=== PATIENT | female | born 1995 | race Caucasian/White ===

== ENCOUNTER → 2018-01-14 14:02 | Outpatient (CLI) | payer OTHER, MEDICAID ==
[2015-03-05 05:49] VITALS: BMI 32.6
[~2018-01-14 14:02] MED LIST: CASTOR OIL; IBUPROFEN600 MG PO; PERCOCET 5-3251 TAB PO; PRILOSEC20 MG PO
[2018-01-14 14:42] LABS: APPEARANCE CLEAR (CLEAR); BILIRUBIN NEGATIVE (NEGATIVE); COLOR YELLOW (YELLOW); GLUCOSE NEGATIVE (NEGATIVE); KETONE NEGATIVE (NEGATIVE); NITRITE NEGATIVE (NEGATIVE); PROTEIN NEGATIVE (NEGATIVE); SPECIFIC GRAVITY 1.015 (1.005-1.020); UROBILINOGEN NORMAL (NORMAL)
== END | disposition home or self-care (01) ==
LOC: D.LDO 14:02
PROVIDERS: Obstetrics & Gynecology
DX: O26.892 Other specified pregnancy related conditions, second trimester (principal); Z3A.23 23 weeks gestation of pregnancy

== ENCOUNTER → 2018-01-28 20:12 | Outpatient (CLI) | payer OTHER, MEDICAID ==
[2015-03-05 05:49] VITALS: BMI 32.6
[2018-01-28 20:58] LABS: APPEARANCE CLEAR (CLEAR); BILIRUBIN NEGATIVE (NEGATIVE); COLOR DK YELLOW (YELLOW); GLUCOSE NEGATIVE (NEGATIVE); KETONE LARGE mg/dL (NEGATIVE); NITRITE NEGATIVE (NEGATIVE); PROTEIN NEGATIVE (NEGATIVE); UROBILINOGEN NORMAL (NORMAL)
== END | disposition home or self-care (01) ==
LOC: D.LDO 20:12
PROVIDERS: Obstetrics & Gynecology
DX: O26.892 Other specified pregnancy related conditions, second trimester (principal); Z3A.25 25 weeks gestation of pregnancy; W18.30XA Fall on same level, unspecified, initial encounter; Y93.89 Activity, other specified; Y92.512 Supermarket, store or market as the place of occurrence of the external cause

== ENCOUNTER → 2018-03-20 21:15 | Outpatient (CLI) | payer OTHER, MEDICAID ==
[2015-03-05 05:49] VITALS: BMI 32.6
[2018-03-20 21:57] LABS: APPEARANCE CLEAR (CLEAR); COLOR YELLOW (YELLOW); SPECIFIC GRAVITY 1.005 (1.005-1.020)
[2018-03-20 21:58] LABS: BILIRUBIN NEGATIVE (NEGATIVE); GLUCOSE 250 mg/dL (NEGATIVE); KETONE NEGATIVE (NEGATIVE); NITRITE NEGATIVE (NEGATIVE); PROTEIN NEGATIVE (NEGATIVE); UROBILINOGEN NORMAL (NORMAL)
[2018-03-20 21:59] LABS: BACTERIA FEW /hpf (NONE SEEN); EPITHELIAL CELLS 0-5 /hpf (0-5); RED CELLS - URINE 0-5 /hpf (0-5); WHITE CELLS - URINE 0-5 /hpf (0-5)
== END | disposition home or self-care (01) ==
LOC: D.LDO 21:15
PROVIDERS: Obstetrics & Gynecology
DX: O26.893 Other specified pregnancy related conditions, third trimester (principal); Z3A.32 32 weeks gestation of pregnancy

== ENCOUNTER 2018-04-29 19:20 | Inpatient (IN) | payer MEDICAID ==
[~2018-04-29] VITALS: Ht 170.2 cm; Wt 87.1 kg
--- NOTE | ~2018-04-29 | DS ---
PATIENT:ANDREA GUADARRAMA :89 MEDICAL RECORD: [id number] DISCHARGE SUMMARY ADMISSION DATE: 04/30/18 DISCHARGE DATE: 05/02/18 HOSPITAL COURSE: The patient was admitted on 04/30/2018. A 22-year-old G2, P1 at 38 weeks and 7 days, who was admitted in labor. The patient was noted to be O negative, group B strep negative, and rubella immune. PAST MEDICAL HISTORY: Significant for remote history of epilepsy, history of acid reflux, history of depression. PAST SURGICAL HISTORY: The patient had a surgical history significant for cholecystectomy and hernia repair. ALLERGIES: The patient reported no allergies. FAMILY HISTORY: The patient reported a family history of hypertension in a sibling. SOCIAL HISTORY: The patient reported being a daily tobacco user. PHYSICAL EXAMINATION: VITAL SIGNS: Stable. The patient was afebrile and normotensive. LUNGS: Clear to auscultation. CARDIOVASCULAR: Regular rate and rhythm. PELVIC: Uterus was appropriately sized and appropriately tender. EXTREMITIES: Lower extremities were free of Homans sign, erythema or swelling. LABORATORY DATA: Admission hemoglobin was found to be 12.8 with a platelet count of 248. ASSESSMENT AND PLAN: At that time; 1. Term intrauterine at 38 weeks and 4 days. 2. Labor. 3. Remote history of epilepsy. 4. Depression. 5. Smoker. Plan for management of labor augmentation as necessary. Plan for artificial rupture of membranes when appropriate. wellbeing is reassuring with a category 1 tracing. The patient quickly progressed to 9 cm at which point artificial rupture of membranes was performed with clear fluid and category 1 tracing remain. The patient had a normal spontaneous vaginal delivery with repair of a second degree laceration. The delivery note is as on the chart. The patient did well overnight on day #0, tolerating p.o. pain meds, general diet, voiding freely and ambulating well, tolerating general diet. On morning of day #1, the patient continued to do well. Vital signs are stable. The patient was afebrile. hemoglobin was appropriate for blood loss. Uterus was infraumbilical and appropriately tender. The patient reported some pain at the area of the left labial repair. The patient was continued on [place] for pain and was discharged home on day #1 with instructions to follow up in 2 weeks for assessment of the labial tear. TRANSINT:[id number] Voice Confirmation ID: [id number] DOCUMENT ID: [id number] DISCHARGE SUMMARY REPORT [id number] ANDREA GUADARRAMA MICHAEL W MD CC: [id number] DICTATION DATE: 05/24/18746 MACHINE OPERATOR HOP PICKER: 05/24/1857 DIS IN 05/02/18 [place] [id number] [place] [id number]
[2018-04-30 02:35] VITALS: BP 105/63; Ht 170.2 cm; Wt 87.1 kg
[2018-04-30 05:08] LABS: HEMATOCRIT 36.8 % (36.0-48.0); HEMOGLOBIN 12.8 g/dL (12-16); MCH 28.7 pg (26.0-34.0); MCHC 34.8 g/dL (31.0-37.0); MCV 82.5 fL (80.0-100.0); MEAN PLATELET VOLUME 10.6 fL (7.4-10.4); RBC 4.46 10x6/uL (4.00-5.40); RDW 14.5 % (11.5-14.5); WBC 16.5 10x3/uL (4.8-10.8)
[2018-04-30 07:28] LABS: UDS - AMPHET NEGATIVE QUAL (NEGATIVE); UDS - BARB NEGATIVE QUAL (NEGATIVE); UDS - BENZO NEGATIVE QUAL (NEGATIVE); UDS - COCAINE NEGATIVE QUAL (NEGATIVE); UDS - OPIATE POSITIVE QUAL (NEGATIVE); UDS - PCP NEGATIVE QUAL (NEGATIVE); UDS - THC NEGATIVE QUAL (NEGATIVE)
--- NOTE | 2018-04-30 14:47 | NUR ---
REQUESTED MOTRIN FOR 4/10 ABD CRAMPING. MOTRIN 600 MG GIVEN PO AT THIS TIME. ALSO INSTRUCTED ON USE OF DERMOPLAST SPRAY IF NEEDED FOR PERINEAL DISCOMFORT. VERBALIZED UNDERSTANDING. SITTING UP IN BED EATING HAMBURGER AND TALKING TO VISITORS X2. INFANT SLEEPING IN CRIB.
--- NOTE | 2018-04-30 15:15 | NUR ---
CALLED CLINICAL SUPPORT ASSOCIATE LIGHT. REQUESTED INFANT TO GO TO THE NURSERY "SO I CAN SLEEP. I HAVEN'T SLEPT IN TWO DAYS." TAKEN TO NURSERY IN CRIB. SIDE RAILS UP X 2, CALL LIGHT IN REACH.
--- NOTE | 2018-04-30 16:15 | NUR ---
SLEEPING ON RIGHT SIDE. RESPIRATIONS EVEN. DID NOT AROUSE FOR PAIN ASSESSMENT AT THIS TIME. IN NURSERY.
--- NOTE | 2018-04-30 17:34 | NUR ---
SLEEPING ON LEFT SIDE. RESPIRATIONS EVEN. ALLOWED TO SLEEP AT THIS TIME. INFANT IN NURSERY. LIGHTS ON LOW, SIDE RAILS UP X 2, CALL LIGHT IN REACH. REGULAR DIET AT BEDSIDE.
--- NOTE | 2018-04-30 18:13 | NUR ---
CONTINUES TO SLEEP ON LEFT SIDE, RESPIRATIONS EVEN. REMAINS IN NURSERY CARE.
[2018-04-30 19:26] VITALS: BP 107/69
--- NOTE | 2018-04-30 19:26 | NUR ---
INTO PT. ROOM FOR ASSESSMENT. PT. LYING ON BACK WITH HOB AT 45 DEGREES. REPORTS THAT SHE IS WITHOUT PAIN AT THIS TIME. REPORTS THAT DERMOPLAST IS EFFECTIVE WHEN USED. SALINE LOCK NOTED IN LT HAND WITHOUT REDNESS NOR EDEMA AT SITE. FUNDUS FIRM U/2 AND MOD LOCHIA RUBRA NOTED ON SINGLE ROSALES PAD PT. WAS WEARING. ENCOURAGED PT. TO WEAR 2 PADS AT HS TO PREVENT SPILL OVER. PT. STATED UNDERSTANDING. BREATH SOUNDS CLEAR AND BOWEL SOUNDS AUDIBLE. PT. STATES THAT SHE HAS NOT BEEN OUT OF BED MUCH TODAY. ENCOURAGED AMBULATION PRIOR TO GOING TO SLEEP FOR THE NIGHT. PT. AGREEABLE. MEAL TRAY AT BEDSIDE WHICH WAS 70% CONSUMED AND FOOD BROUGHT FROM OUTSIDE ON BEDSIDE TABLE. INFANT TO ROOM FOR VISIT.
--- NOTE | 2018-04-30 20:30 | NUR ---
LYING ON BACK WITH HOB AT 30 DEGREES. IN NBN. PT. TALKING ON PHONE AND CHEERFUL. LEMON [place] SODA SERVED TO PT. DENIES ANY FURTHER NEEDS.
--- NOTE | 2018-04-30 21:45 | NUR ---
PT. SITTING UP IN BED WITH HOB AT 45 DEGREES. PT. CHEERFUL. IN OPEN CRIB AT BEDSIDE SUCKING ON PACIFIER. PT. COMMENTING THAT INFANT IS CONTENT. DENIES ANY NEEDS AT THIS TIME.
--- NOTE | 2018-04-30 22:22 | NUR ---
WALKING ABOUT IN ROOM. DENIES ANY NEEDS. REMAINS IN OPEN CRIB AT BEDSIDE ASLEEP. PT. ATTENTIVE TO .
--- NOTE | 2018-04-30 23:05 | NUR ---
PT. REQUESTING IBUPROFEN FOR PAIN SCORE OF 4 OF 10 FOR ABD. CRAMPING. LYING IN BED WITH HOB AT 45 DEGREES. INFANT REMAINS IN OPEN CRIB AT BEDSIDE. ASKED PT. IF SHE WAS . PT. STATES THAT SHE HASN'T TRIED YET. DISCUSSED WITH PT. THAT WITH NEXT FEEDING NBN NURSE CAN COME TO ROOM TO HELP HER AND PT. CONSENTS TO PLAN. ICE WATER PROVIDED.
--- NOTE | 2018-04-30 23:55 | NUR ---
pt. lying on rt side. States pain is a 3-4 of 10 on pain scale. Slightly drowsy. Denies any needs.
--- NOTE | 2018-05-01 01:23 | NUR ---
PT. CALLED DESK ASKING IF SHE COULD LEAVE UNIT TO GO TO VENDING AREA. THIS NURSE TO ROOM AND EXPLAINED THAT MD DID NOT LIKE PATIENT LEAVING THE UNIT. INFORMED PT. OF NOURISHMENTS AVAILABLE TO HER AND PT. REQUESTED SANDWICH TRAY AND CHIP WITH SODA. SANDWICH TRAY,CHIPS AND [place]ON [place] SODA SERVED TO PT. PT. LYING ON BACK WITH HOB AT 45 DEGREES. PT. CHEERFUL. INFANT CURRENTLY IN N.
--- NOTE | 2018-05-01 03:46 | NUR ---
LYING ON BACK WITH HOB AT 15 DEGREES. EYES CLOSED. RESPIRATIONS UNLABORED.
--- NOTE | 2018-05-01 05:55 | NUR ---
LYING ON LT SIDE WITH EYES CLOSED. RESPIRATIONS UNLABORED.
--- NOTE | 2018-05-01 06:57 | NUR ---
ASSUME CARE OF THIS PATIENT. SITTING UP BOTTLEFEEDING . WILL COMPLETE SHIFT ASSESSMENT AFTER BREAKFAST. NO REQUESTS AT PRESENT. SAYS SHE SMOKES ABOUT 3 SIGS A DAY, HAD FLU VACCINATION DURING , UNSURE ABOUT TDAP. RH NEGATIVE, RH NEGATIVE. RUBELLA IMMUNE, GBS NEG. ANTICIPATE DC HOME TODAY. SIDE RAILS UP X 2, CALL LIGHT IN REACH.
[2018-05-01 07:45] VITALS: BP 101/57
--- NOTE | 2018-05-01 08:00 | NUR ---
HAS BEEN USING DERMAPLAST SPRAY PRN STATES "IT OLIVAREZ". TUCKS PADS GIVEN AND INSTRUCTED ON USE TO HELP FOR PAIN, SWELLING, SOOTHING EFFECTS. VERBALIZED UNDERSTANDING. WILL USE NEXT TIME UP TO BATHROOM.
--- NOTE | 2018-05-01 08:08 | NUR ---
SHIFT ASSESSMENT COMPLETED. C/O 09/26 PERINEAL ACHING. STATES "I THINK IT'S SWOLLEN AND I'M HAVING TROUBLE SITTING". NORCO 5 MG GIVEN PO FOR RELIEF. DR HARP VISITED AND ALSO LOOKED A PERINEUM. HE INSTRUCTED PATIENT TO KEEP ICE PACK ON PERINEUM FOR NEXT 24 HOURS. HE INSTRUCTED PT THAT SHE MAY GO HOME TODAY OR TOMORROW IF DESIRES. CBC ORDERED BY . IN ROOM, Estela HICKS RN AT BEDSIDE.
--- NOTE | 2018-05-01 08:38 | NUR ---
SITTING UP EATING BREAKFAST, USED TUCKS AND HAS ICE PACK IN PLACE. STATES "I FEEL MUCH BETTER". / PERINEAL ACHING. INFANT IN CRIB. SIDE RAILS UP X 2, CALL LIGHT IN REACH. NO REQUESTS.
[2018-05-01 08:56] LABS: BASOPHILS 0.2 % (0-2); EOSINOPHILS 0.4 % (0-7); HEMATOCRIT 30.9 % (36.0-48.0); HEMOGLOBIN 10.3 g/dL (12-16); IMMATURE GRANULOCYTES 0.5 % (0-5); LYMPHOCYTES 18.8 % (15-50); MCH 28.1 pg (26.0-34.0); MCHC 33.3 g/dL (31.0-37.0); MCV 84.4 fL (80.0-100.0); MEAN PLATELET VOLUME 9.7 fL (7.4-10.4); MONOCYTES 6.7 % (2-11); NEUTROPHILS 73.4 % (40-80); PLATELET COUNT 206 10x3/uL (130-400); RBC 3.66 10x6/uL (4.00-5.40); RDW 14.6 % (11.5-14.5); WBC 13.2 10x3/uL (4.8-10.8)
--- NOTE | 2018-05-01 10:11 | NUR ---
SITTING UP IN BED TALKING ON PHONE. DESIRES LEMON [place] DRINK, GIVEN ALONG WITH FRESH WATER. IN NURSERY. DESIRES TO TAKE A NAP.
--- NOTE | 2018-05-01 11:14 | NUR ---
PT DESIRES TO STAY UNTIL TOMORROW STATES "ONE MORE NIGHT SO I DON'T HAVE KIDS JUMPING ON ME". DR HARP NOTIFIED THAT PT WANTS TO STAY ANOTHER DAY, HE SAID THAT WAS FINE BUT NEED TO MAKE SURE HER INSURANCE WILL COVER ANOTHER DAY'S STAY. MD ALSO NOTIFIED OF WBC/HBG/HCT RESULTS. PT NOTIFIED OF INFORMATION ABOVE. STATES "OK".
--- NOTE | 2018-05-01 11:25 | NUR ---
MARKER SHIPMENTS CURRENTLY IN ROOM TALKING TO PATIENT.
--- NOTE | 2018-05-01 12:31 | NUR ---
SITTING UP IN BED WAITING ON LUNCH. ASKED IF SALINE LOCK CAN BE DC'D "IT'S REALLY BOTHERING ME". SALINE LOCK DC'D. TIP INTACT. HOUSEKEEPING NOTIFIED OF NEED FOR ROOM CLEANING. INSTRUCTED PT TO LET RN KNOW WHEN READY TO SHOWER SO LINEN CHANGE CAN BE COMPLETED. INFANT IN NURSERY. SIDE RAILS UP X 2, CALL LIGHT IN REACH.
--- NOTE | 2018-05-01 12:41 | NUR ---
INFANT IN ROOM. EATING LUNCH. SAYS HER PERINEAL PAIN IS "LIKE A 2". USING ICE PACK PRN. NO REQUESTS. TO CALL IF ANYTHING IS NEEDED.
--- NOTE | 2018-05-01 13:42 | NUR ---
WATCHING TV. INFANT IN CRIB. NO REQUESTS.
[2018-05-01 15:07] VITALS: BP 94/58
--- NOTE | 2018-05-01 15:18 | NUR ---
SITTING UP IN BED BOTTLE FEEDING . DISCUSSED ENGOURGMENT POTENTIAL AND PREVENTION IF SHE COMPLETELY DECIDES NOT TO BREASTFEED. NO REQUESTS. ENCOURAGED TO GET OOB AND AMBULATE IN [place]. ALSO ENCOURAGED TO SHOWER TODAY. STATES "I'D LIKE TO WALK". INSTRUCTED OK TO WALK IN [place] PUSHING IN CRIB.
--- NOTE | 2018-05-01 17:46 | NUR ---
SITTING UP IN BED. FINISHED EATING BREAKFAST. SAYS SHE PLANS TO SHOWER AFTER BOTTLE FEEDING . HAS AMBULATED IN [place] AND ROOM. SOME CRAMPING/PERINEAL ACHING 4-5/ OFFERED PAIN MEDICATION NORCO OR MOTRIN. DECLINED AT THIS TIME. RECOMMENDED NOT WAITING IF PAIN INCREASES OR SHE FEELS SHE NEEDS IT. VERBALIZED UNDERSTANDING. CALL LIGHT IN REACH.
--- NOTE | 2018-05-01 18:49 | NUR ---
UP TO SHOWER. COMPLETE LINEN CHANGE DONE. INFANT IN NURSERY.
[2018-05-01 19:21] VITALS: BP 100/60
--- NOTE | 2018-05-01 19:21 | NUR ---
RN TO PT BS FOR JAMEY. PT RESTING IN BED IN SEMI-FOWLERS POSITION, IN NO ACUTE DISTRESS. PT IS A 22 YO G2 NOW P2 WITH OF VIABLE FEMALE YESTERDAY @ 0929. INFANT @ 38.4 WKS GESTATION. PT WITH 2ND DEGREE LACERATION S/P REPAIR. AAOX3. HR REGULAR. LUNGS CTAB. ABDOMEN SOFT AND NON TENDER. BS ACTIVE TIMES 4. FUNDUS NOT PALPATED. ROSALES PAD AND PANTIES IN PLACE. LOCHIA RUBRA SCANT. PERINIUM APPEARS TO BE INTACT WITH MINIMAL SWELLING NOTED. PT DENIES DIFFICULTY VOIDING. STATES SHE IS PASSING GAS BUT HAS NOT HAD A BM SINCE . PT TOLERATING REGULAR DIET WITHOUT DIFFICULTY. NO EDEMA NOTED TO UPPER OR LOWER EXTREMITIES BILATERALLY. NO IV ACCESS. PT C/O PAIN, RATES 6/10, REQUESTS MEDICATION. 1 TAB NORCO 5 PROVIDED AT THIS TIME. PT DENIES ANY FURTHER NEEDS. BED IN LOW POSITION, SIDE RAILS UP TIMES 2, CALL LIGHT AND PHONE IN REACH. NO FAMILY AT BS. INFANT AT PT BS FOR COUPLET CARE. WILL CONT TO MONITOR PT STATUS.
--- NOTE | 2018-05-01 20:06 | NUR ---
RN TO PT BS TO REASSESS PT PAIN. PT RESTING IN BED IN SEMI-FOWLERS POSITION, TEXTING ON PHONE, PT IN NO ACUTE DISTRESS. PT STATES PAIN LEVEL IS NOW 3/10. PT DENIES ANY FURTHER NEEDS AT THIS TIME. BED IN LOW POSITION, SIDE RAILS UP TIMES 2, CALL LIGHT AND PHONE IN REACH. INFANT REMAINS AT PT BS FOR COUPLET CARE. WILL CONT TO MONITOR PT STATUS.
--- NOTE | 2018-05-01 21:28 | NUR ---
RN CALLED TO PT BS. REQUESTS SNACK. SANDWICH TRAY, CHIPS, AND SPRITE PROVIDED TO PT AT THIS TIME. PT DENIES ANY FURTHER NEEDS. BED IN LOW POSITION, SIDE RAILS UP TIMES 2, CALL LIGHT AND PHONE IN REACH. INFANT REMAINS AT PT BS FOR COUPLET CARE. WILL CONT TO MONITOR PT STATUS.
--- NOTE | 2018-05-02 00:37 | NUR ---
RN TO PT BS FOR ROUNDS. PT RESTING IN BED IN HIGH FOWLERS POSITION, HOLDING . PT IN NO ACUTE DISTRESS. PT DENIES ANY NEEDS AT THIS TIME. BED IN LOW POSITION, SIDE RAILS UP TIMES 2, CALL LIGHT AND PHONE IN REACH. NO FAMILY AT BS. REMAINS AT PT BS FOR COUPLET CARE. WILL CONT TO MONITOR PT STATUS.
--- NOTE | 2018-05-02 01:21 | NUR ---
RN CALLED TO PT BS. PT C/O PAIN, RATES 09/26. REQUESTS MEDICATION. 1 TAB NORCO 5 PROVIDED AT THIS TIME. PT DENIES ANY FURTHER NEEDS. BED IN LOW POSITION, SIDE RAILS UP TIMES 2, CALL LIGHT AND PHONE IN REACH. REMAINS AT PT BS FOR COUPLET CARE. WILL CONT TO MONITOR PT STATUS.
--- NOTE | 2018-05-02 03:20 | NUR ---
RN TO PT BS. ADDITIONAL SPRITE PROVIDED TO PT PER REQUEST. PT DENIES ANY FURTHER NEEDS. BED IN LOW POSITION. SIDE RAILS UP TIMES 2, CALL LIGHT AND PHONE IN REACH. INFANT REMAINS AT PT BS FOR COUPLET CARE. WILL CONT TO MONITOR PT STATUS.
--- NOTE | 2018-05-02 04:20 | NUR ---
ADDITIONAL DISPOSABLE PANTIES PROVIDED TO PT. PT DENIES ANY FURTHER NEEDS. WILL CONT TO MONITOR PT STATUS.
--- NOTE | 2018-05-02 04:47 | NUR ---
ADDITIONAL ROSALES PADS PROVIDED TO PT. PT DENIES ANY FURTHER NEEDS. WILL CONT TO MONITOR PT STATUS.
[2018-05-02 07:30] VITALS: BP 117/77
--- NOTE | 2018-05-02 07:30 | NUR ---
AM ASSESSMENT COMPLETED CHARTED ON EMAR. PT RATES PAIN AT 0/10 AT THIS TIME AND COMPLAINS OF "BEING TIRED" DENIES CLOTS WITH VOIDS AND STATES BLEEDING IS LESS THAN HER MENSTRAL. REGULAR DIET TRAY SERVED PER DIETARY, IN CRIB AT BEDSIDE. PT DENIES ANY NEEDS AT THIS TIME.
--- NOTE | 2018-05-02 08:15 | NUR ---
LARGE CUP OF ICE PER REQUEST.
--- NOTE | 2018-05-02 09:45 | NUR ---
CONTINUE TO DENY PAIN, BREASTMILK THAT SHE PUMPED TAKEN TO ROOM FOR INFANT FEEDING.
--- NOTE | 2018-05-02 11:00 | NUR ---
PT CALLS FOR NURSE SHE HAS 2 CONTAINERS OF BREAST MILK THAT SHE HAS PUMPED, LABELED TO INCLUDE TIME/DATE. THESE ARE TAKEN TO [place] IN NURSERY. NO OTHER NEEDS AT THIS TIME.
--- NOTE | 2018-05-02 11:18 | NUR ---
CALLED TO ROOM, PT STATES THAT HER SISTER WILL BE PICKING HER UP AROUND 1PM OR 1:30PM. DENIES NEEDS AND CONTINUE TO RATE PAIN AT 0/10. UP WALKING IN ROOM WITH IN CRIB AT BEDSIDE.
[2018-05-02] MEDS ORDERED: IBUPROFEN600 MG PO (12:09)
[2018-05-02] MEDS ORDERED: HYDROCODON-ACE1 EAC7 PO (12:09)
--- NOTE | 2018-05-02 12:45 | NUR ---
VERBAL AND WRITTEN DISCHARGE INSTRUCTIONS GONE OVER, PT PROVIDED WITH WRITTEN SCRIPT FOR NORCO 5/325MG AND MOTRIN 600MG SHE STATES HER UNDERSTANDING TO ALL INFO AND DENIES ANY QUESTIONS OR CONCERNS. STATES THAT HER SISTER SHOULD BE HERE AROUND 1:30PM TO PICK HER UP, WILL CALL WHEN SHE IS READY TO LEAVE.
--- NOTE | 2018-05-02 13:31 | NUR ---
PT CALLS OUT THAT SHE IS READY, DENIES WHEELCHAIR AND REQUEST TO WALK OUT. NOTED TO BE SECURED INTO CARRIER, THIS RN WALKS WITH PT AND FAMILY TO FRONT DOORS, HOME BY PRIVATE CAR WITH .
[2018-05-03 03:11] LABS: RAPID PLASMA REAGIN Non Reactive (Non Reactive)
== END 2018-05-02 13:31 | disposition home or self-care (01) | DRG 807 ==
LOC: D.LDO 19:20 → D.LD 22:30 → D.LDO 04-30 04:12 → D.LD 04-30 04:12
PROVIDERS: ADMIT Obstetrics & Gynecology
PROC: 10E0XZZ Delivery of Products of Conception, External Approach (ICD-10-PCS; principal; 2018-04-30)
PROC: 0KQM0ZZ Repair Perineum Muscle, Open Approach (ICD-10-PCS; 2018-04-30)
PROC: 10907ZC Drainage of Amniotic Fluid, Therapeutic from Products of Conception, Via Natural or Artificial Opening (ICD-10-PCS; 2018-04-30)
DX: O99.344 Other mental disorders complicating childbirth (principal); Z37.0 Single live birth; Z3A.38 38 weeks gestation of pregnancy; O99.334 Smoking (tobacco) complicating childbirth; O70.1 Second degree perineal laceration during delivery